=== PATIENT | female | born 1995 | race Caucasian/White ===

== ENCOUNTER 2018-11-06 23:31 | Emergency (ER) | payer OTHER ==
[~2018-11-06] VITALS: Ht 162.6 cm; Wt 61.5 kg
[2018-11-06 23:34] VITALS: BP 154/91; PULSE 82; RESP 19; Ht 162.6 cm; Wt 61.5 kg
[2018-11-07] MEDS ORDERED: ONDANSETRON (ODT) 4 MG TAB ODT STA (01:19)
--- NOTE | 2018-11-07 01:36 | ERD ---
ER Documentation Chief Complaint Chief Complaint C/O AP, N/V/D X5 DAYS, RECENT TRIP TO [place] HPI 23-year-old female is here with generalized abdominal pain with nausea vomiting and diarrhea for 5 days after getting home from a trip to [place]. No fever. Denies possibility of . No urinary symptoms. Has not tried any medications for this. Tolerating oral intake. ROS All systems reviewed and are negative except as per history of present illness. FmHx Family History: No diabetes Physical Exam Vitals Vital Signs Date Temp Pulse Resp B/P (MAP) Pulse Ox O2 O2 Flow FiO2 Time Delivery Rate 11/06/18 98.3 82 19 154/91 98 23:34 (112) Physical Exam INITIAL VITAL SIGNS: Reviewed by me GENERAL: Awake, alert and oriented x 4, well appearing, nontoxic, speaking in full sentences. No acute distress HEAD: Atraumatic RESPIRATORY: Clear to auscultation bilaterally. Symmetric chest wall rise. No wheezing or rales. No accessory muscle use. CV: Regular rate and rhythm. No murmurs, rubs, or gallops. ABDOMEN: Soft, non-distended. Nontender. Negative Monroe. Negative McBurneys point tenderness. No CVA tenderness bilaterally. No guarding. No rebound. Results 24 hrs Current Medications Medications Dose Sig/[place] Start Time Status Last (Trade) Ordered Route PRN Stop Time Admin Dose Reason Admin Ondansetron 4 mg ONCE STAT 11/07/18 DC HCl (Zofran ODT 01:19 11/07/18 Odt) 01:20 Procedures/MDM The differential diagnosis includes but is not limited to appendicitis, cholelithiasis, cholecystitis, pancreatitis, hepatitis, gastritis, peptic ulcer disease, bowel obstruction, diverticulitis, renal disease including stones, torsion, AAA, pyelonephritis, and others. GI examination is benign. test negative. Zofran given. Prescription for Zofran given as well as Cipro. Patient counseled regarding my diagnostic impression and care plan. Prior to discharge all questions answered. Pt agrees with treatment plan and understands strict return precautions. Pt is instructed to follow up with primary care mehreen fowler within 24-48 hours. Precautionary instructions provided including instructions to return to the ER if not improving or for any worsening or changing symptoms or concerns. Departure Diagnosis: Primary Impression: Travelers' diarrhea Condition: Stable MARAL STEVENSON PA-C November 07, 2018 01:36
[2018-11-07] MEDS ORDERED: CIPR500T4 PO (01:37)
[2018-11-07] MEDS ORDERED: ONDA4TAB14 PO (01:37)
== END 2018-11-07 01:52 | disposition home or self-care (01) ==
LOC: FTE 23:31
DX: R19.7 Diarrhea, unspecified (principal); R11.2 Nausea with vomiting, unspecified
CPT/HCPCS: 81025; Z7502; Z7610; 99283